=== PATIENT | male | born 1975 | race Caucasian/White ===

== ENCOUNTER 2017-09-27 15:00 | Outpatient (RCR) | payer MEDICARE, MEDICAID, SELFPAY ==
--- NOTE | 2017-08-04 08:53 | HP.PTEVAL_ITS ---
Patient's Visit Information LA NENA MARTE is a 42 year old M referred to Physical Therapy by Santiago Bearden with a diagnosis of Lateral epicondylitis and CP. Date of Evaluation: 08/04/17 Physical Therapist: Kamran Carrillo - Visit Plan Frequency: 1x/Week Duration: 10 weeks Plan: Start with deep friction massage to R lateral epicondyle, eccentric strengthening of R wrist extensors, iontophoresis to same region. BLE stretching, and strengthening. - Subjective Subjective: Pt. is here today for his initial evalution with diagnosis of R lateral epicondylitis and history of CP. Pt. is known to this PT as he has been seen for his BLE strength and spasticity. Pt. reports hurting R elbow after tossing heavy logs of wood repeatedly into the back of his trunk. Pt. reprots having pain for several months now and has not reduces, but has also not worsened. Pt. reports increased pain with all gripping, typing on computer, wrist extension exercises and lifting. Decreased symptoms- rest. Pt. denies NT and no neck or shoulder pain. No radiating pain as well. Pt. ambulates with very rigid pattern with gait with limited knee flexion/extension motions. Pt. reports he is able to complete most ADLs, but does get off balance at times. He would like to increase his BLE ROM and increased BLE strength as well. - Pain R lateral elbow Pain Intensity (Out of 10): 3 Pain Intensity Range: 1 - Objective POSTURE: Pt. has flexed posture in stance, hip ER with narrow GEORGE. Pt. utilizes brown when able to stablize balance. Pt. has FH posture with rounded shoulders. PALPATION: Pt. has increased tenderness to R lateral epicondyle and along wrist extension muscle group/tendons. No pain at shoulder ro wrist. NEUROLOGICAL: Pt. has 2+ biceps and triceps DTR bilaterally. Pt. has 3+ patellar DTR bilaterally. Did not elicite achilles B. ROM: Pt. has full ROM of R elbow, but does report increased pain with end range flexion and extension. Pt. has increased tone throughout bilateral LEs, tightness into hip flexors, HS , hip adductors, quads bilaterally. Pt. has marked tone as well. MMT: RLE- ankle- trace, knee- ext 4/5, flexion 4/5; hip- flexion 4/5, abd 4-/5, ext 4/5. LLE- ankle trace; knee- ext 4/5, flexion 4/5; hip- flexion 4/5, abd 4-/5, ext 4/ 5. Core strength- fair+. GAIT: Pt. ambulates with increased knee flexion, croutched pattern, decreased step length bilaterally, step length does not pass previous foot. Pt. has minimal hip flexion, but uses trunk rotation to advance LEs. STAIRS; heavy use of UEs, step to pattern. - Goals Goal 1:: Pt. to be I with HEP. Goal Time Frame: 4-6 Weeks Goal 2:: Pt. to have 0-1/10 pain in R elbow with all ADLs and recreational activities. Goal Time Frame: 6-8 Weeks Goal 3:: Pt. to have increased BLE strength by 1/2 grade throughout LEs allowing for increased stability in stance/gait. Goal Time Frame: 4-6 Weeks Goal 4:: Pt. to have increased hip flexor and HS length allowing for increased mobility with gait and txs. Goal Time Frame: 6-8 Weeks - Rehabilitation Potential Physical Therapy Diagnosis: Pt. has signs and symptoms consistent with R lateral epicondylitis and BLE weakness/increased tone secondary to CP. Pt. would benefot from PT decreased R lateral elbow pain, increased BLE strength and increased ROM allowing for increased gait. Rehabilitation Potential: Good - Anticipated Interventions Patient/Client Instruction: Educate patient on: Condition, Plan of Care, Risk Factors, Benefits of Fitness Program For the Purpose of:: To foster healthy habits, To improve decision making, To facilitate caregiver knowledge, To improve self management, To prevent re-injury , To improve ability to perform tasks related to life management, To improve tolerance to ADL's Therapeutic Exercise to Include: Strength training, Power training, Endurance training, Balance training, Postural training, Flexibilty training, Passive ROM , Active ROM For the Purpose of:: To decrease pain, To increase ROM, To improve muscle performance and motor function, To improve health of tissue, To decrease soft tissue restriction, To increase flexibility/ROM, To improve endurance, To improve balance, To improve safety with gait Manual Therapy Techniques to Include: Mobilization, Functional dry needling, Soft tissue mobilization For the Purpose of:: To decrease pain, To decrease swelling/inflammation, To increase ROM Iontophoresis (with Dexamethozone, with Acetic acid): Yes Ultrasound (thermal/non thermal): Yes For the Purpose of:: To decrease pain, To decrease swelling/inflammation, To increase ROM, To improve nutrient delivery to tissue, To increase oxygenation perfusion, To improve muscle performance and motor function Thank you for the opportunity to evaluate your patient. For Medicare and Medicare HMO plans, please review the plan of care and approve it. It will need to be FAXED BACK to us at [phone] for Medicare purposes. Please let me know if there are questions or concerns regarding this plan of care. Physician Signature: Date:
--- NOTE | 2017-09-05 10:24 | HP.PTREVAL_ITS ---
Santiago Bearden, It has been my pleasure to treat LA NENA MARTE over the last 5 visits for Lateral epicondylitis and CP. Please see the progress note below for an update on the physical therapy plan of care! Subjective: Pt. reports overall my elbow is doing better, if I move it certain ways I feel it, but not as bad. Pt. reports being 60% better overall. Pt. reports being HEP compliant. Objective/Function: Pt. continues to progress with Relbow pain. Pt. has improved director strategic account management strength without increase in symptoms. He is compliant with all exercises. Decreased pain with wrist flexion stretches as well. He does have increased symptoms with gripping heavier wts with wrist extension. Pt. has been educated on proper mechanics to reduce stresses. Pt. was again educated on tone in BLEs, possible spasticity management, but declined. Pt. is progressing with strengtheneing, but as expected, miminal change in tissue length with stretching. Plan Plan: Cont. with treatment of R lateral epicondylitis as previously stated in POC. Pt. is showing progress. Cont. x1 per week for 5 more weeks. Cont. with iontophoresis for anti inflammatory and pain control. Goals Goal 1:: Pt. to be I with HEP. Goal Time Frame: 4-6 Weeks Goal Progress: Progressing Goal 2:: Pt. to have 0-1/10 pain in R elbow with all ADLs and recreational activities. Goal Time Frame: 4-6 Weeks Goal Progress: Progressing Goal 3:: Pt. to have increased BLE strength by 1/2 grade throughout LEs allowing for increased stability in stance/gait. Goal Time Frame: 4-6 Weeks Goal Progress: Progressing Goal 4:: Pt. to have increased hip flexor and HS length allowing for increased mobility with gait and txs. Goal Time Frame: 6-8 Weeks Goal Progress: Progressing Anticipated Interventions Patient/Client Instruction: Educate patient on: Condition, Plan of Care, Risk Factors, Benefits of Fitness Program For the Purpose of:: To foster healthy habits, To improve decision making, To facilitate caregiver knowledge, To improve self management, To prevent re-injury , To improve ability to perform tasks related to life management, To improve tolerance to ADL's Therapeutic Exercise to Include: Strength training, Power training, Endurance training, Balance training, Postural training, Flexibilty training, Passive ROM , Active ROM For the Purpose of:: To decrease pain, To increase ROM, To improve muscle performance and motor function, To improve health of tissue, To decrease soft tissue restriction, To increase flexibility/ROM, To improve endurance, To improve balance, To improve safety with gait Manual Therapy Techniques to Include: Mobilization, Functional dry needling, Soft tissue mobilization For the Purpose of:: To decrease pain, To decrease swelling/inflammation, To increase ROM Iontophoresis (with Dexamethozone, with Acetic acid): Yes Ultrasound (thermal/non thermal): Yes For the Purpose of:: To decrease pain, To decrease swelling/inflammation, To increase ROM, To improve nutrient delivery to tissue, To increase oxygenation perfusion, To improve muscle performance and motor function Please do not hesitate to contact me at [phone] by phone or Fax: if you have questions or concerns regarding this new plan of care! Sincerely, Kamran Carrillo
--- NOTE | 2017-09-28 09:58 | HP.PTDCSUM ---
HP - PT D/C Summary It has been my pleasure to treat LA NENA MARTE under orders from Santiago Bearden, for the diagnosis of Lateral epicondylitis and CP for a total of 10 visit(s). Discharge Date: 09/27/17 Please see the following information for a summary of their discharge status. - Subjective Subjective: Pt. reports I really don't have any elbow pain any more. Pt. reports being HEP compliant. He reprots being 98% better. - Pain R lateral elbow Pain Intensity (Out of 10): 0 - Overall Improvement % Improvement: 98 - Objective Objective/Function: Pt. has full ROM of R wrist and elbow without increse in symptoms. Pt. reports no pain with palpation and no pain with wrist extension MMT. Pt. has progressed as expected. Pt. pleased. Pt. is to continue with wrist extensor eccentric strengthening and stretching. - Goals Goal 1:: Pt. to be I with HEP. Goal Progress: Goal Met Goal 2:: Pt. to have 0-1/10 pain in R elbow with all ADLs and recreational activities. Goal Progress: Goal Met Goal 3:: Pt. to have increased BLE strength by 1/2 grade throughout LEs allowing for increased stability in stance/gait. Goal Progress: Goal Met Goal 4:: Pt. to have increased hip flexor and HS length allowing for increased mobility with gait and txs. Goal Progress: Progressing - Plan Plan: Pt. to be DC to HEP at this point in time. - D/C Information Discharge Comments: Pt. was treated for his R lateral epicondylitis with eccentric strengthening, stretching, iontophoresis and US. His LE stretching continues to be difficult. Pt. has spastic tone in BLEs due to CP and has had little changes with stretching, PNF, and strengthening. I have frequently talked to him about spasticity management, but pt. continues to decline. He is no longer having any issues and will be DC from PT to HEP at this point in time. Pt. reports being able to complete all of his activities without issues. If there are questions or concerns regarding this patient's physical therapy, please feel free to call me at [phone]. Thank you for the referral of this patient. Sincerely, Kamran Carrillo
== END 2017-09-27 19:00 | disposition home or self-care (01) ==
LOC: PT 15:00
PROVIDERS: Family Provider Family Medicine; PCP Family Medicine; Visit Provider Family Medicine
DX: M77.11 Lateral epicondylitis, right elbow (principal); G80.9 Cerebral palsy, unspecified
CPT/HCPCS: 97035; 97110; 97140; 97162